=== PATIENT | female | born 1975 | race African-American/Black ===

== ENCOUNTER 2017-07-15 18:06 | Emergency (ER) | payer OTHER, MEDICAID ==
[~2017-07-15] VITALS: Ht 160 cm; Wt 68.0 kg
[~2017-07-15 18:06] MED LIST: CROLOM 4% OPTH SO4 % OP; HYDROCODONE-AP1 EAC6 PO; IBUPROFEN 800800 M1 PO; MEDROLDOSEPACK PO; NOHOMEMEDICATIONS; NORCO 5-325 TA1 EACH PO; PENICILLIN VK250 MG PO; PENICILLIN VK500 MG PO; TRIAMCINOLONE A80 G2 TOP; ZYRTEC10 M5 PO
[2017-07-15] MEDS ORDERED: TRIAMCINOLONE A80 G2 TOP (18:33)
[2017-07-15] MEDS ORDERED: AMOXICILLIN 50500 MG PO (18:33)
[2017-07-15] MEDS ORDERED: IBUPROFEN 800800 M1 PO (18:33)
[2017-07-15 18:36] VITALS: BP 173/105
== END 2017-07-15 18:43 | disposition home or self-care (01) ==
LOC: M.ERS 18:06
DX: L25.9 Unspecified contact dermatitis, unspecified cause (principal); K04.7 Periapical abscess without sinus; S69.91XA Unspecified injury of right wrist, hand and finger(s), initial encounter; F17.210 Nicotine dependence, cigarettes, uncomplicated; W23.0XXA Caught, crushed, jammed, or pinched between moving objects, initial encounter; Y93.89 Activity, other specified; Y92.89 Other specified places as the place of occurrence of the external cause; Y99.8 Other external cause status

== ENCOUNTER 2017-11-13 11:41 | Emergency (ER) | payer OTHER, MEDICAID ==
[~2017-11-13] VITALS: Ht 160 cm; Wt 73.5 kg
[~2017-11-13 11:41] MED LIST changes: +AMOXICILLIN 50500 MG PO
[2017-11-13] MEDS ORDERED: TRAMADOL 50 MG50 MG PO (14:08)
[2017-11-13 14:19] VITALS: BP 185/106
== END 2017-11-13 14:30 | disposition home or self-care (01) ==
LOC: M.ERS 11:41
DX: M71.22 Synovial cyst of popliteal space [Baker], left knee (principal); I10 Essential (primary) hypertension; F17.210 Nicotine dependence, cigarettes, uncomplicated

== ENCOUNTER 2018-03-25 13:21 | Emergency (ER) | payer OTHER, MEDICAID ==
[~2018-03-25] VITALS: Ht 160 cm; Wt 73.5 kg
[~2018-03-25 13:21] MED LIST changes: +TRAMADOL 50 MG50 MG PO
[2018-03-25 14:31] LABS: URINE BILIRUBIN NEGATIVE (Negative); URINE BLOOD 2+ (Negative); URINE CLARITY CLEAR; URINE COLOR YELLOW; URINE GLUCOSE-RANDOM NEGATIVE (Negative); URINE KETONES NEGATIVE (Negative); URINE LEUKOCYTES-REFLEX NEGATIVE (Negative); URINE NITRITE-REFLEX NEGATIVE (Negative); URINE PROTEIN NEGATIVE (Negative); URINE SPECIFIC GRAVITY 1.025 (1.005-1.030); URINE UROBILINOGEN 0.2 E.U./dl (0.2-1.0)
[2018-03-25 14:38] LABS: BACTERIA-REFLEX None Seen /HPF (None Seen); SQUAMOUS 0-3 Few /LPF (0-3); URINE RBC 0-2 Rare /HPF (0-2)
[2018-03-25] MEDS ORDERED: MEDROLDOSEPACK PO (15:49)
[2018-03-25] MEDS ORDERED: NABUMETONE 750750 M1 PO (15:49)
[2018-03-25] MEDS ORDERED: FLEXERIL PO (15:49)
[2018-03-25] MEDS ORDERED: NORCO 5-325 TA1 EACH PO (15:49)
[2018-03-25 16:03] VITALS: BP 201/99
== END 2018-03-25 16:03 | disposition home or self-care (01) ==
LOC: M.ERS 13:21
PROVIDERS: Nurse Practitioner Family
DX: M51.26 Other intervertebral disc displacement, lumbar region (principal); M54.16 Radiculopathy, lumbar region; I10 Essential (primary) hypertension; F17.210 Nicotine dependence, cigarettes, uncomplicated; Z98.890 Other specified postprocedural states

== ENCOUNTER 2018-06-15 09:36 | Emergency (ER) | payer OTHER, MEDICAID ==
[~2018-06-15] VITALS: Ht 160 cm; Wt 78.0 kg
[~2018-06-15 09:36] MED LIST changes: +FLEXERIL PO; +NABUMETONE 750750 M1 PO
[2018-06-15] MEDS ORDERED: TRAMADOL 50 MG50 MG PO (10:30)
[2018-06-15 10:57] VITALS: BP 155/75
== END 2018-06-15 10:58 | disposition home or self-care (01) ==
LOC: M.ERS 09:36
DX: S76.112A Strain of left quadriceps muscle, fascia and tendon, initial encounter (principal); I10 Essential (primary) hypertension; F17.210 Nicotine dependence, cigarettes, uncomplicated; X50.3XXA Overexertion from repetitive movements, initial encounter; Y93.02 Activity, running; Y92.89 Other specified places as the place of occurrence of the external cause; Y99.8 Other external cause status

== ENCOUNTER 2019-01-17 10:31 | Emergency (ER) | payer OTHER ==
[~2019-01-17] VITALS: Ht 160 cm; Wt 73.9 kg
[2019-01-17] MEDS ORDERED: PENICILLIN V P500 MG PO (11:26)
[2019-01-17 11:40] VITALS: BP 195/110
== END 2019-01-17 11:41 | disposition home or self-care (01) ==
LOC: M.ERS 10:31
DX: K04.7 Periapical abscess without sinus (principal); K02.9 Dental caries, unspecified; I10 Essential (primary) hypertension; F17.210 Nicotine dependence, cigarettes, uncomplicated; Z98.51 Tubal ligation status

== ENCOUNTER 2019-02-09 12:01 | Emergency (ER) | payer OTHER ==
[~2019-02-09] VITALS: Ht 160 cm; Wt 73.5 kg
[~2019-02-09 12:01] MED LIST changes: +PENICILLIN V P500 MG PO
[2019-02-09 13:32] LABS: ABSOLUTE BASOPHILS 0.1 thou/uL (0.0-0.2); ABSOLUTE EOSINOPHILS 0.1 thou/uL (0.0-0.7); ABSOLUTE LYMPHOCYTES 1.7 thou/uL (0.8-5.3); ABSOLUTE MONOCYTES 0.7 thou/uL (0.0-1.2); ABSOLUTE NEUTROPHILS 4.3 thou/uL (1.6-8.1); BASOPHILS 1.4 %; EOSINOPHILS 1.3 %; HEMATOCRIT 38.8 % (37.0-47.0); HEMOGLOBIN 12.9 gm/dL (12.0-15.0); LYMPHOCYTES 24.2 %; MCHC 33.1 g/dL (28.0-37.0); MCV 90.5 fL (80.0-100.0); MONOCYTES 10.3 %; MPV 9.1 fl. (7.2-11.1); NUCLEATED RBCS 0 /100WBC; PLATELET COUNT* 233 thou/uL (150-400); POLYS 62.8 %; RBC 4.29 mil/uL (4.20-5.00); RDW-CV 14.1 % (10.5-14.5); WBC 6.9 thou/uL (4.0-11.0)
[2019-02-09 13:39] LABS: CALCIUM 9.5 mg/dL (8.5-10.1); CREATININE 0.8 mg/dL (0.6-1.3)
[2019-02-09 13:43] LABS: ALBUMIN 3.9 g/dL (3.4-5.0); TOTAL BILIRUBIN 0.8 mg/dL (<0.1-1.0)
[2019-02-09] MEDS ORDERED: PRINIVIL10 MG PO (13:50)
[2019-02-09] MEDS ORDERED: TYLENOL WITH CO1 TA1 PO (13:51)
[2019-02-09] MEDS ORDERED: KEFLEX500 M1 PO (13:51)
[2019-02-09] MEDS ORDERED: CIPROFLOXIN HC2.5 M1 OPHTHALMIC (13:51)
[2019-02-09] MEDS ORDERED: PRINIVIL20 MG PO (14:07)
[2019-02-09 14:08] VITALS: BP 178/109
== END 2019-02-09 14:09 | disposition home or self-care (01) ==
LOC: M.ERS 12:01
PROVIDERS: Physician Assistant
DX: H00.011 Hordeolum externum right upper eyelid (principal); I10 Essential (primary) hypertension; F17.210 Nicotine dependence, cigarettes, uncomplicated; Z91.013 Allergy to seafood; Z98.51 Tubal ligation status

== ENCOUNTER 2019-05-03 20:39 | Emergency (ER) | payer OTHER ==
[~2019-05-03] VITALS: Ht 160 cm; Wt 71.7 kg
[~2019-05-03 20:39] MED LIST changes: +CIPROFLOXIN HC2.5 M1 OPHTHALMIC; +KEFLEX500 M1 PO; +PRINIVIL10 MG PO; +PRINIVIL20 MG PO; +TYLENOL WITH CO1 TA1 PO
[2019-05-03 21:15] LABS: INFLUENZA A ANTIGEN Negative (Negative); INFLUENZA B ANTIGEN Negative (Negative)
[2019-05-03] MEDS ORDERED: TESSALON PERLE100 MG PO (21:29)
[2019-05-03] MEDS ORDERED: PROMETHAZI6.25 MG/5 PO (21:29)
[2019-05-03] MEDS ORDERED: LISINOPRIL20 MG PO (21:30)
[2019-05-03 21:44] VITALS: BP 182/124
== END 2019-05-03 21:45 | disposition home or self-care (01) ==
LOC: M.ERS 20:39
PROVIDERS: Family Medicine
DX: J06.9 Acute upper respiratory infection, unspecified (principal); Z76.0 Encounter for issue of repeat prescription; I10 Essential (primary) hypertension; F17.210 Nicotine dependence, cigarettes, uncomplicated; Z91.013 Allergy to seafood; Z98.51 Tubal ligation status